=== PATIENT | female | born 1965 | race Caucasian/White ===

== ENCOUNTER → 2019-05-19 16:15 | Outpatient (BNVA) | payer MEDICAID, SELFPAY | PROVIDERS: Family Provider Dermatology; PCP Family Medicine; Visit Provider Nurse Practitioner Psychiatric/Mental Health | DX: F33.1 Major depressive disorder, recurrent, moderate (principal); F41.9 Anxiety disorder, unspecified; F43.12 Post-traumatic stress disorder, chronic | CPT/HCPCS: 99215 ==

== ENCOUNTER → 2019-06-10 11:46 | Outpatient (BNVA) | payer MEDICAID, SELFPAY | PROVIDERS: Family Provider Dermatology; PCP Family Medicine; Visit Provider Counselor Professional | DX: F43.12 Post-traumatic stress disorder, chronic (principal); F10.21 Alcohol dependence, in remission | CPT/HCPCS: 90834 ==

== ENCOUNTER → 2019-06-17 10:52 | Outpatient (BNVA) | payer MEDICAID, SELFPAY | PROVIDERS: Family Provider Dermatology; PCP Family Medicine; Visit Provider Counselor Professional | DX: F43.12 Post-traumatic stress disorder, chronic (principal); F10.21 Alcohol dependence, in remission | CPT/HCPCS: 90834 ==

== ENCOUNTER → 2019-06-24 10:55 | Outpatient (BNVA) | payer MEDICAID, SELFPAY | PROVIDERS: Family Provider Dermatology; PCP Family Medicine; Visit Provider Counselor Professional | DX: F43.12 Post-traumatic stress disorder, chronic (principal); F10.21 Alcohol dependence, in remission | CPT/HCPCS: 90834 ==

== ENCOUNTER → 2019-07-01 10:49 | Outpatient (BNVA) | payer MEDICAID, SELFPAY | PROVIDERS: Family Provider Dermatology; PCP Family Medicine; Visit Provider Counselor Professional | DX: F43.12 Post-traumatic stress disorder, chronic (principal); F10.21 Alcohol dependence, in remission | CPT/HCPCS: 90834 ==

== ENCOUNTER → 2019-07-08 11:01 | Outpatient (BNVA) | payer MEDICAID, SELFPAY | PROVIDERS: Family Provider Dermatology; PCP Family Medicine; Visit Provider Counselor Professional | DX: F43.12 Post-traumatic stress disorder, chronic (principal); F10.21 Alcohol dependence, in remission | CPT/HCPCS: 90834 ==

== ENCOUNTER → 2019-07-15 10:49 | Outpatient (BNVA) | payer MEDICAID, SELFPAY | PROVIDERS: Family Provider Dermatology; PCP Family Medicine; Visit Provider Counselor Professional | DX: F43.12 Post-traumatic stress disorder, chronic (principal); F10.21 Alcohol dependence, in remission | CPT/HCPCS: 90834 ==

== ENCOUNTER → 2019-07-21 13:46 | Outpatient (BNVA) | payer MEDICAID, SELFPAY | PROVIDERS: Family Provider Dermatology; PCP Family Medicine; Visit Provider Nurse Practitioner Psychiatric/Mental Health | DX: F43.12 Post-traumatic stress disorder, chronic (principal); F10.21 Alcohol dependence, in remission | CPT/HCPCS: 99213 ==

== ENCOUNTER → 2019-07-22 10:56 | Outpatient (BNVA) | payer MEDICAID, SELFPAY | PROVIDERS: Family Provider Dermatology; PCP Family Medicine; Visit Provider Counselor Professional | DX: F43.12 Post-traumatic stress disorder, chronic (principal); F10.21 Alcohol dependence, in remission | CPT/HCPCS: 90834 ==

== ENCOUNTER → 2019-07-29 11:00 | Outpatient (BNVA) | payer MEDICAID, SELFPAY | PROVIDERS: Family Provider Dermatology; PCP Family Medicine; Visit Provider Counselor Professional | DX: F43.12 Post-traumatic stress disorder, chronic (principal); F10.21 Alcohol dependence, in remission | CPT/HCPCS: 90834 ==

== ENCOUNTER → 2019-09-22 08:21 | Outpatient (BNVA) | payer MEDICAID, SELFPAY | PROVIDERS: Family Provider Dermatology; PCP Family Medicine; Visit Provider Nurse Practitioner Psychiatric/Mental Health | DX: F43.12 Post-traumatic stress disorder, chronic (principal); F41.9 Anxiety disorder, unspecified; F33.1 Major depressive disorder, recurrent, moderate; F10.21 Alcohol dependence, in remission | CPT/HCPCS: 99212 ==

== ENCOUNTER → 2019-09-24 08:05 | Outpatient (BNVA) | payer MEDICAID, SELFPAY | PROVIDERS: Family Provider Dermatology; PCP Family Medicine; Visit Provider Counselor Professional | DX: F43.12 Post-traumatic stress disorder, chronic (principal) | CPT/HCPCS: 90834 ==

== ENCOUNTER → 2019-09-29 08:36 | Outpatient (BNVA) | payer MEDICAID, SELFPAY | PROVIDERS: Family Provider Dermatology; PCP Family Medicine; Visit Provider Counselor Professional | DX: F43.12 Post-traumatic stress disorder, chronic (principal) | CPT/HCPCS: 90834 ==

== ENCOUNTER → 2019-10-15 08:15 | Outpatient (BNVA) | payer MEDICAID, SELFPAY | PROVIDERS: Family Provider Dermatology; PCP Family Medicine; Visit Provider Counselor Professional | DX: F43.12 Post-traumatic stress disorder, chronic (principal); F10.21 Alcohol dependence, in remission | CPT/HCPCS: 90834 ==

== ENCOUNTER → 2019-10-27 07:52 | Outpatient (BNVA) | payer MEDICAID, SELFPAY | PROVIDERS: Family Provider Dermatology; PCP Family Medicine; Visit Provider Nurse Practitioner Psychiatric/Mental Health | DX: F43.12 Post-traumatic stress disorder, chronic (principal); F10.21 Alcohol dependence, in remission; F41.9 Anxiety disorder, unspecified; F33.1 Major depressive disorder, recurrent, moderate | CPT/HCPCS: 99212 ==

== ENCOUNTER 2019-11-16 10:15 | Inpatient (IN) | payer MEDICAID, SELFPAY ==
[2019-11-16] VITALS (99 sets, daily range): BP systolic 93–150; BP diastolic 62–90; PULSE 81–109; RESP 10–16; TEMP 37.9–38.1; O2SAT 92–100; BMI 25.0
--- NOTE | 2019-11-16 10:17 | CT_ITS ---
WS: [id number] CT HEAD TECHNIQUE: Noncontrast CT of the head obtained from the skullbase to the vertex. CLINICAL INFORMATION: ams COMPARISON: 4 10,019 DLP: 771.[address] scans at [facility] use at least one of these dose optimization techniques: automat ed exposure control; mA and/or kV adjustment per patient size (includes targeted exams where dose is matched to clinical indication); or iterative reconstruction. FINDINGS: No evidence of intracranial hemorrhage. Multiple chronic lacunar infarcts involving the periventricul ar white matter. Chronic lacunar infarct right caudate. Symmetric appearing encephalomalacia involvin g the verdugo radiata bilaterally likely due to chronic ischemia. This is new from 2019. Chronic appea ring ischemia in the right basal ganglia. Diffuse low-attenuation change involving the cerebellum bilaterally some of which was present in 2019 and may be chronic. seen with subacute ischemia, posterior reversible encephalopathy syndrome, anoxi c injury, and encephalitis. This can be followed up with MRI. Paranasal sinuses and mastoid air cells are well aerated. .Normal visualized soft tissues. Notified Corby Lau MD at 11/16/2019 12:[address]/CT head wo con* [id number] IMPRESSION: 1. No evidence of intracranial hemorrhage 2. Multiple chronic lacunar infarcts in the periventricular white matter and r ight caudate appear chronic. 3. Diffuse low-attenuation change in the cerebellum bilaterally was at least p artially present in 2019. Differential considerations include Subacute ischemia , posterior reversible encephalopathy syndrome, anoxia, and encephalitis. Findi ngs can be further evaluated with MRI to assess acuity. 4. Encephalomalacia involving the evrdugo radiata bilaterally likely due to chr onic ischemia new from 2019.
--- NOTE | 2019-11-16 10:17 | XR_ITS ---
WS: [id number] Portable AP upright chest, 11/16/2019 Clinical Data: intubated Comparison: Portable chest, 08/13/2018 Findings: The endotracheal tube is above the sari. No nodules, masses or effusions are seen. The he art is normal. The pulmonary vascularity is not remarkable. No pneumonia or pneumothorax is seen. The re are monitor leads on the chest wall. The pulmonary vascularity is not increased. No pneumonia or p neumothorax is seen. XR/XR chest 1V portable [id number] Impression: Satisfactory placement of endotracheal tube.
--- NOTE | 2019-11-16 10:18 | ECG_ITS ---
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 Measurements Intervals [place] Rate: 94 P: 78 [place]: 154 QRS: 78 QRSD: 110 T: 65 QT: 375 QTc: 470 Interpretive Statements SINUS RHYTHM Compared to ECG 12/30/2017 07:58:54 Sinus tachycardia no longer present ST (T wave) deviation no longer present Electronically Signed On 11-16-2019 16:40:32 CDT by Duarte Ruelas M.D. [email or web address] [id number]
[2019-11-16 10:37] LABS: Basophils # 0.1 10^3/uL (0.0-0.1); Basophils % 0.4 %; Eosinophils % 0.1 %; Hematocrit 41.4 % (37.0-47.0); Hemoglobin 12.7 g/dL (11.5-15.3); Lymphocytes # 1.5 10^3/uL (0.8-4.8); Mean Corpuscular HGB Conc 30.7 g/dL (30.0-36.0); Mean Corpuscular Hemoglobin 31.5 pg (28.0-34.0); Mean Corpuscular Volume 102.7 fL (81-99); Mean Platelet Volume 9.6 fL (7.4-10.4); Monocytes % 4.5 %; Neutrophils # 18.27 10^3/uL (1.8-7.7); Neutrophils % 85.8 %; Nucleated Red Blood Cells % 0 %; Platelet Count 186 10^3/cmm (130-400); Red Blood Count 4.03 10^6/uL (4.1-5.3); Red Cell Distribution Width 12.2 % (12.1-15.1); White Blood Count 21.3 10^3/uL (4.0-10.0)
--- NOTE | 2019-11-16 10:40 | W.ED.GENADLT ---
HPI - General Adult General: Chief complaint: Airway/Esophagus Foreign Body Stated complaint: UNRESPONSIVE Time Seen by Provider: 11/16/19 10:17 Source: EMS Mode of arrival: EMS Limitations: altered mental status History of Present Illness: HPI narrative: 54-year-old female who EMS found unresponsive. Last known normal was last night at 8 PM. They arrived patient had a GCS of 3 and was not responding at all. Pulse ox was below 50%. They gave Narcan with no response. Patient was then intubated under rapid sequence intubation. Patient here does not respond to has been given rocuronium. She has a history of an overdose in the past. Boyfriend at scene did not know of any meds that she had taken recently though. No known injuries. Review of Systems General: Reports: ROS unobtainable due to mental status Physical Exam Const: COMMON NORMALS: negative for patient oriented x3 EXAM LIMITATIONS: altered mental status GENERAL APPEARANCE: ill appearing HENMT: COMMON NORMALS: atraumatic HEAD & SCALP: atraumatic Eye: COMMON NORMALS: conjunctivae normal CONJUNCTIVA: Yes conjunctivae normal Neck/C-Spine: COMMON NORMALS: no lymphadenopathy, supple and no JVD Chest: COMMONS NORMALS: normal inspection of the chest and normal palpation of entire chest wall Resp: OTHER: Abated with good breath sounds bilaterally Cardio: COMMON NORMALS: no JVD, regular rate and regular rhythm RATE: regular rate RHYTHM: regular rhythm GI: COMMON NORMALS: Normal to inspection, nondistended, normoactive bowel sounds present and Soft to palpation PALPATION: Yes Soft to palpation Extremity: COMMON NORMALS: normal to inspection and capillary refill normal Neuro: COMMON NORMALS: negative for patient oriented x3 Psych: COMMON NORMALS: negative for mental status grossly normal Skin: COMMON NORMALS: no rashes or lesions noted and no wounds GENERAL SKIN EXAM: no rashes or lesions noted Course Vital Signs: Vital signs: Vital Signs Pulse Rate 87 11/16/19 12:56 Respiratory Rate 14 11/16/19 12:52 Blood Pressure 114/79 11/16/19 10:17 Pulse Oximetry 100 11/16/19 12:52 MDM - General Adult MDM Narrative: Medical decision making narrative: Patient presents here with altered mental status and unresponsiveness. Patient was intubated in the field and was hypoxic. Patient's had minimally responsiveness here. I spoke to Dr. Amezcua and will admit to the ICU. Lab Data: Labs: Lab Results 11/16/19 11/16/19 11/16/19 Range/Units 10:29 10:29 10:29 WBC 21.3 H (4.0-10.0) 10^3/ uL RBC 4.03 L (4.1-5.3) 10^6/u L Hgb 12.7 (11.5-15.3) g/dL Hct 41.4 (37.0-47.0) % MCV 102.7 H (81-99) fL MCH 31.5 (28.0-34.0) pg MCHC 30.7 (30.0-36.0) g/dL RDW 12.2 (12.1-15.1) % Plt Count 186 (130-400) 10^3/c mm MPV 9.6 (7.4-10.4) fL Neut % (Auto) 85.8 % Lymph % (Auto) 7.0 % [place] % (Auto) 4.5 % Eos % (Auto) 0.1 % Baso % (Auto) 0.4 % Neut # (Auto) 18.27 H (1.8-7.7) 10^3/u L Lymph # (Auto) 1.5 (0.8-4.8) 10^3/u L [place] # (Auto) 1.0 H (0.2-0.9) 10^3/u L Eos # (Auto) 0.0 (0.0-0.8) 10^3/u L Baso # (Auto) 0.1 (0.0-0.1) 10^3/u L Nucleated RBC % (a uto) 0 % Nucleated RBCs # 0.0 /100WBC PT 14.50 H (10.5-13.3) SECO NDS INR 1.10 (0.8-1.2) Specimen Type Sample Site ABG pH (7.35-7.45) ABG pCO2 (35-45) mmHg ABG pO2 (80.0-100.0) mmH g ABG HCO3 (22-26) mmol/L ABG Base Excess (-2.0-2.0) mmol/ L Rc Test Hematocrit (37-47) % O2 Delivery Device FiO2 % Tidal Volume PEEP cmH20 Chief Revenue Officer ID Sodium 138 (136-145) mmol/L Potassium 4.3 (3.5-5.1) mmol/L Chloride 95 L (98-107) mmol/L Carbon Dioxide 24 (22-29) mmol/L Anion Gap 23.3 H (5-19) BUN 9 (6-20) mg/dL Creatinine 1.8 H (0.5-0.9) mg/dL GFR Calculation 29.5 L (90-130) mL/min Glucose 100 (65-115) mg/dL Calculated Osmolal ity 282 L (285-295) mOsm/k g Lactate (0.5-2.2) mmol/L Calcium 9.1 (8.5-10.5) mg/dL Magnesium 2.2 (1.7-2.3) mg/dL Total Bilirubin 0.3 (0.15-1.2) mg/dL AST 289 H (0-32) U/L ALT 268 H (0-33) U/L Alkaline Phosphata se 81 (35-105) IU/L NT-Pro-B Natriuret Pep 1425 H (0-125) pg/mL Total Protein 6.7 (6.6-8.7) g/dL Albumin 4.3 (3.5-5.2) g/dL Globulin 2.4 (1.3-4.6) g/dL Salicylates < 0.3 L (3-10) mg/dL Acetaminophen < 5.0 L (10-30) ug/mL Ethyl Alcohol < 10 (0-10) mg/dL 11/16/19 11/16/19 Range/Units 10:29 11:20 WBC (4.0-10.0) 10^3/ uL RBC (4.1-5.3) 10^6/u L Hgb (11.5-15.3) g/dL Hct (37.0-47.0) % MCV (81-99) fL MCH (28.0-34.0) pg MCHC (30.0-36.0) g/dL RDW (12.1-15.1) % Plt Count (130-400) 10^3/c mm MPV (7.4-10.4) fL Neut % (Auto) % Lymph % (Auto) % [place] % (Auto) % Eos % (Auto) % Baso % (Auto) % Neut # (Auto) (1.8-7.7) 10^3/u L Lymph # (Auto) (0.8-4.8) 10^3/u L [place] # (Auto) (0.2-0.9) 10^3/u L Eos # (Auto) (0.0-0.8) 10^3/u L Baso # (Auto) (0.0-0.1) 10^3/u L Nucleated RBC % (a uto) % Nucleated RBCs # /100WBC PT (10.5-13.3) SECO NDS INR (0.8-1.2) Specimen Type Arterial Sample Site Radial, right ABG pH 7.38 (7.35-7.45) ABG pCO2 44.2 (35-45) mmHg ABG pO2 55.0 L (80.0-100.0) mmH g ABG HCO3 26.0 (22-26) mmol/L ABG Base Excess 0.5 (-2.0-2.0) mmol/ L Rc Test Pos Hematocrit 40.9 (37-47) % O2 Delivery Device Vent FiO2 100.0 % Tidal Volume 0.45 PEEP 8.0 cmH20 Chief Revenue Officer ID broma Sodium (136-145) mmol/L Potassium (3.5-5.1) mmol/L Chloride (98-107) mmol/L Carbon Dioxide (22-29) mmol/L Anion Gap (5-19) BUN (6-20) mg/dL Creatinine (0.5-0.9) mg/dL GFR Calculation (90-130) mL/min Glucose (65-115) mg/dL Calculated Osmolal ity (285-295) mOsm/k g Lactate 4.2 H* (0.5-2.2) mmol/L Calcium (8.5-10.5) mg/dL Magnesium (1.7-2.3) mg/dL Total Bilirubin (0.15-1.2) mg/dL AST (0-32) U/L ALT (0-33) U/L Alkaline Phosphata se (35-105) IU/L NT-Pro-B Natriuret Pep (0-125) pg/mL Total Protein (6.6-8.7) g/dL Albumin (3.5-5.2) g/dL Globulin (1.3-4.6) g/dL Salicylates (3-10) mg/dL Acetaminophen (10-30) ug/mL Ethyl Alcohol (0-10) mg/dL Imaging Data^: CT Head: Attestation: I personally reviewed and interpreted this imaging study as follows: Radiologist's impression: [place] [address] CT Scan Report Signed Patient: Katerina Singer Unit #: [id number] : 1965 Age/Sex: 54 / F ADM Date: 11/16/19 Loc: ER Room/Bed: Attending Dr: Ordering Provider/Ordering MD: Corby Lau MD Date of Service: 11/16/19 Procedure(s): CT head wo con* [id number] Accession Number(s): [id number] Report Number: [id number] WS: [id number] CT HEAD TECHNIQUE: Noncontrast CT of the head obtained from the skullbase to the vertex. CLINICAL INFORMATION: ams COMPARISON: DLP: 771.[address] scans at [facility] use at least one of these dose optimization techniques: automated exposure control; mA and/or kV adjustment per patient size (includes targeted exams where dose is matched to clinical indication); or iterative reconstruction. FINDINGS: No evidence of intracranial hemorrhage. Multiple chronic lacunar infarcts involving the periventricular white matter. Chronic lacunar infarct right caudate. Symmetric appearing encephalomalacia involving the verdugo radiata bilaterally likely due to chronic ischemia. This is new from 2019. Chronic appearing ischemia in the right basal ganglia. Diffuse low-attenuation change involving the cerebellum bilaterally some of which was present in 2019 and may be chronic. seen with subacute ischemia, posterior reversible encephalopathy syndrome, anoxic injury, and encephalitis. This can be followed up with MRI. Paranasal sinuses and mastoid air cells are well aerated. .Normal visualized soft tissues. Notified Corby Lau MD at 11/16/2019 12:[address]/CT head wo con* [id number] IMPRESSION: 1. No evidence of intracranial hemorrhage 2. Multiple chronic lacunar infarcts in the periventricular white matter and right caudate appear chronic. 3. Diffuse low-attenuation change in the cerebellum bilaterally was at least partially present in 2019. Differential considerations include Subacute ischemia, posterior reversible encephalopathy syndrome, anoxia, and encephalitis. Findings can be further evaluated with MRI to assess acuity. 4. Encephalomalacia involving the verdugo radiata bilaterally likely due to chronic ischemia new from 2019. CXR: My impression: ET tube in place no acute findings Critical Care Time Critical Care Time: Critical Care Time: Yes Total Critical Care Time: 35 Attestation: This case had a high probability of a clinically significant, sudden, or life threatening deterioration of this patient's condition which required my full and direct attention, intervention and personal management. Discharge Plan Discharge Admit Provider: Pascual Amezcua Coding Level of Care Code ED Wrapping Machine Helper for [facility] Exam Comprehensive
[2019-11-16 11:07] LABS: Alanine Aminotransferase 268 U/L (0-33); Albumin Level 4.3 g/dL (3.5-5.2); Alkaline Phosphatase 81 IU/L (35-105); Aspartate Amino Transferase 289 U/L (0-32); Blood Urea Nitrogen 9 mg/dL (6-20); Calcium 9.1 mg/dL (8.5-10.5); Carbon Dioxide 24 mmol/L (22-29); Chloride 95 mmol/L (98-107); Globulin 2.4 g/dL (1.3-4.6); Glomerular Filtration Rate 29.5 mL/min (90-130); Glucose 100 mg/dL (65-115); Magnesium 2.2 mg/dL (1.7-2.3); NT Pro B Type Natriuretic Pept 1425 pg/mL (0-125); Osmolality Calculated 282 mOsm/kg (285-295); Sodium 138 mmol/L (136-145); Total Bilirubin 0.3 mg/dL (0.15-1.2); Total Protein 6.7 g/dL (6.6-8.7)
[2019-11-16 11:24] LABS: Acetaminophen < 5.0 ug/mL (10-30); Alcohol Level < 10 mg/dL (0-10); Anion Gap 23.3 (5-19); Potassium 4.3 mmol/L (3.5-5.1); Salicylate < 0.3 mg/dL (3-10)
[2019-11-16 11:28] LABS: Lactate (Lactic Acid level) 4.2 mmol/L (0.5-2.2)
[2019-11-16 11:40] LABS: ABG PCO2 44.2 mmHg (35-45); ABG PH Result 7.38 (7.35-7.45); Arterial Blood Gas Hematocrit 40.9 % (37-47); Base Excess ABG 0.5 mmol/L (-2.0-2.0); Blood Gas Allen Test Pos; Blood Gas Sample Site Radial, right; Blood Gas Sample Type Arterial; Blood Gas Tidal Volume 0.45; Oxygen Device VENT
[2019-11-16] MEDS: ipratropium-albuterol 3 mL Neb INHALATION ×3 (12:52→20:56)
--- NOTE | 2019-11-16 14:30 | PC.NURSE ---
Read and agree with assessment.
--- NOTE | 2019-11-16 14:35 | ECG_ITS ---
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 Measurements Intervals [place] Rate: 98 P: 73 IN: 124 QRS: 51 QRSD: 105 T: 24 QT: 371 QTc: 474 Interpretive Statements SINUS RHYTHM ST DEVIATION AND MODERATE T-WAVE ABNORMALITY, CONSIDER ANTERIOR ISCHEMIA [-0.1+ mV T WAVE IN V3/V4] Compared to ECG 11/16/2019 11:25:26 T-wave abnormality now present Possible ischemia now present Electronically Signed On 11-16-2019 16:44:13 CDT by Duarte Ruelas M.D. [id number]
--- NOTE | 2019-11-16 14:48 | PC.NURSE ---
PATIENT UPDATE TO DR Dr. Amezcua called to give update on patient. ER brought patient to ICU and stated in brief handoff report that patient had not required any additional sedation after roceronium administration in ER. Dr. Amezcua instructed to hold propofol and fentanyl to see how patient does upon waking up on her own. Stated that he would put in additional orders and to update him as she wakes up.
[2019-11-16] MEDS: piperacillin-tazobactam 3.375 GM in sodium chloride 0.9% (plus) 50 ML IV ×2 (15:22→23:46)
[2019-11-16] MEDS: enoxaparin 40 mg/0.4 mL Syringe SUBCUT (15:22)
[2019-11-16] MEDS: propofol 1,000 MG/100 ML INJ 4.4 MG IV (16:06)
--- NOTE | 2019-11-16 16:13 | PC.NURSE ---
SEDATION INITIATION Patient ventilator started alarming. Patient biting down on ET tube and would not let go with instruction to. Respiratory in room intervening and placed bite block. Dr. Amezcua notified, and instructed to begin propofol.
[2019-11-16 16:19] LABS: Ammonia 30 umol/L (11-51)
[2019-11-16 16:23] LABS: D Dimer 11.07 ug/mIFEU (0-0.59)
[2019-11-16 16:30] LABS: Amphetamines Screen Urine Negative (Negative); Barbiturates Screen Urine Negative (Negative); Benzodiazepines Screen Urine Positive (Negative); Cocaine Screen Urine Negative (Negative); Opiate Screen Urine Negative (Negative); PCP Screen Urine Negative (Negative); THC Screen Urine Positive (Negative)
[2019-11-16 16:31] LABS: Troponin T (5th) Once 81 ng/L (0-10)
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
[2019-11-16] MEDS: enoxaparin 30 mg/0.3 mL Syringe SUBCUT (18:40)
[2019-11-16 20:37] LABS: Troponin 5 2HR 72.27 ng/L (0-10)
[2019-11-16 20:57] LABS: Troponin 5 2HR Delta -8.73 ABS# (0-10)
[2019-11-16] MEDS: sodium chloride 0.9% 1,000 ML 125 ML IV (22:17)
[2019-11-17] VITALS (86 sets, daily range): BP systolic 97–196; BP diastolic 63–147; PULSE 68–116; RESP 10–25; TEMP 36.4–37; O2SAT 88–100
[2019-11-17 00:47] LABS: Troponin 5 6HR 63.67 ng/L (0-10)
[2019-11-17] MEDS: ipratropium-albuterol 3 mL Neb INHALATION ×5 (00:56→21:18)
--- NOTE | 2019-11-17 05:00 | USCV_ITS ---
Katerina Singer Age: 54 Gender: F : 1965 Exam Date: 11/17/2019 08:09 Ordering Phys: Pascual Amezcua MD Technologist: Reyes Gomez Exam Location: [facility] Indication: TIA BP: 172 / 97 HR: 97 Rhythm: Sinus Technical Quality: Very technically difficult study. Patient on vent. MEASUREMENTS (Male / Female) Normal Values 2D ECHO LV Diastolic Diameter PLAX 4.4 cm 4.2 - 5.9 / 3.9 - 5.3 cm LV Systolic Diameter PLAX 2.0 cm IVS Diastolic Thickness 0.9 cm 0.6 - 1.0 / 0.6 - 0.9 cm IVS Systolic Thickness 1.6 cm LVPW Diastolic Thickness 0.9 cm 0.6 - 1.0 / 0.6 - 0.9 cm LVPW Systolic Thickness 1.3 cm LVOT Diameter 2.0 cm LV Ejection Fraction 2D Teich 85.8 % LV Ejection Fraction MOD 2C 60.4 % LV Ejection Fraction 2C AL 60.5 % LA Diameter 3.3 cm LA Width 3.9 cm LA Height 4.0 cm RA Width 3.6 cm RA Height 3.8 cm M-MODE LV Diastolic Diameter MM 5.0 cm 4.2 - 5.9 / 3.9 - 5.3 cm LV Systolic Diameter MM 4.0 cm LV Ejection Fraction MM Teich 41.9 % IVS Diastolic Thickness MM 0.9 cm 0.6 - 1.0 / 0.6 - 0.9 cm IVS Systolic Thickness MM 1.3 cm LVPW Diastolic Thickness MM 1.0 cm 0.6 - 1.0 / 0.6 - 0.9 cm LVPW Systolic Thickness MM 1.6 cm RV Diastolic Diameter MM 2.0 cm Aortic Annulus Diameter 3.0 cm LA Ao Ratio MM 1.1 MV E Point Septal Separation 1.0 cm DOPPLER AV Peak Velocity 155.0 cm/s LVOT Peak Velocity 89.0 cm/s AV Area Cont Eq vti 2.3 cm squared AV Area Cont Eq pk 1.8 cm squared MV Area PHT 5.0 cm squared Mitral E to A Ratio 0.8 MV E' Velocity 15.0 cm/s Mitral E to MV E' Ratio 5.5 Mitral E to LV E' Lateral Ratio 5.2 Mitral E to LV E' Septal Ratio 5.8 TR Peak Velocity 233.0 cm/s TR Peak Gradient 21.7 mmHg TV Peak E Velocity 82.0 cm/s Right Atrial Pressure 3.0 mmHg Pulmonary Artery Systolic Pressu 24.7 mmHg PV Peak Velocity 98.0 cm/s FINDINGS Left Ventricle Normal left ventricular size and systolic function with no regional wall motion abnormalities. Left ventricular ejection fraction is estimated at 65 %. Normal diastolic function. Right Ventricle Normal right ventricular size and systolic function, RVSP 24.7 mmHg. Right Atrium Normal right atrial size. Right atrial pressure estimated at 3 mmHg. Left Atrium Normal left atrial size. Mitral Valve Structurally normal mitral valve. Trace mitral valve regurgitation. Aortic Valve Aortic valve not well visualized. No aortic valve stenosis. Tricuspid Valve Trace tricuspid valve regurgitation. Pulmonic Valve Pulmonic valve not well visualized. No pulmonary valve stenosis. Pericardium No pericardial effusion. Aorta Aorta not well visualized. CONCLUSIONS 1. Normal left ventricular size and systolic function with no regional wall motion abnormalities. Left ventricular ejection fraction is estimated at 65 %. Normal diastolic function. 2. Normal pulmonary artery pressure. 3. No significant valvular abnormality. 4. No cardioembolic source of stroke based on the study. JULISSA is recommended if clinically indicated. Elicia Sow MD (Electronically Signed) Final Date: 17 November 2019 17:51 S
[2019-11-17 05:24] LABS: Basophils % 0.3 %; Eosinophils % 0.1 %; Hematocrit 34.4 % (37.0-47.0); Hemoglobin 11.7 g/dL (11.5-15.3); Lymphocytes # 1.8 10^3/uL (0.8-4.8); Lymphocytes % 13.1 %; Mean Corpuscular Hemoglobin 32.7 pg (28.0-34.0); Mean Corpuscular Volume 96.1 fL (81-99); Mean Platelet Volume 10.4 fL (7.4-10.4); Monocytes # 0.5 10^3/uL (0.2-0.9); Neutrophils # 11.17 10^3/uL (1.8-7.7); Neutrophils % 81.9 %; Nucleated Red Blood Cells % 0 %; Platelet Count 179 10^3/cmm (130-400); Red Blood Count 3.58 10^6/uL (4.1-5.3); Red Cell Distribution Width 12.6 % (12.1-15.1); White Blood Count 13.6 10^3/uL (4.0-10.0)
[2019-11-17 05:42] LABS: Albumin Level 3.5 g/dL (3.5-5.2); Alkaline Phosphatase 70 IU/L (35-105); Blood Urea Nitrogen 11 mg/dL (6-20); C Reactive Protein 81.9 mg/L (0.0-4.9); Calcium 7.9 mg/dL (8.5-10.5); Carbon Dioxide 24 mmol/L (22-29); Chloride 101 mmol/L (98-107); Globulin 2.4 g/dL (1.3-4.6); Glomerular Filtration Rate 58.2 mL/min (90-130); Glucose 128 mg/dL (65-115); Osmolality Calculated 282 mOsm/kg (285-295); Sodium 137 mmol/L (136-145); Total Bilirubin 0.4 mg/dL (0.15-1.2); Total Protein 5.9 g/dL (6.6-8.7)
[2019-11-17 05:58] LABS: Alanine Aminotransferase 1087 U/L (0-33)
[2019-11-17 06:08] LABS: Aspartate Amino Transferase 1523 U/L (0-32)
[2019-11-17] MEDS: sodium chloride 0.9% 1,000 ML 125 ML IV ×3 (06:14→22:27)
[2019-11-17] MEDS: enoxaparin 80 mg/0.8 mL Syringe 70 MG SUBCUT ×2 (06:14→17:51)
--- NOTE | 2019-11-17 06:20 | NUR.SHIFT ---
SHIFT SUMMARY PT HAS REMAINED SEDATED. PT HAS BEEN TURNED PERIODICALLY, AND ORAL CARE NEEDED. PT IVS REMAIN PATENT. NO SKIN BREAKDOWN NOTED. LUNGS REMAIN DIMINISHED.
--- NOTE | 2019-11-17 06:34 | CT_ITS ---
WS: [id number] CTA OF THE CHEST WITH PULMONARY EMBOLISM PROTOCOL TECHNIQUE: High-resolution contrast enhanced CTA of the chest with coronal and sagittal reformatted i doreens with pulmonary embolism protocol. MIP images are also reviewed. CLINICAL INFORMATION: rule out PE COMPARISON: None. DLP: 498.[address] scans at [facility] use at least one of these dose optimization techniques: automat ed exposure control; mA and/or kV adjustment per patient size (includes targeted exams where dose is matched to clinical indication); or iterative reconstruction. FINDINGS: Proximal main pulmonary arteries are normal. Segmental and subsegmental pulmonary arteries are normal . Normal caliber thoracic aorta. Endotracheal tube with tip above the sari. Enteric tube with tip in the proximal stomach. No medias tinal or hilar lymphadenopathy. Subsegmental atelectasis with patchy infiltrates in the left greater than right lung base. Recommend correlation for pneumonia. Air bronchograms left lower lobe medially. Trace pleural fluid. Adrenal glands are normal. Partially visualized cholelithiasis. This can be followed up with nahomy maddox. CT/CT angio chest PE protcl [id number] IMPRESSION: 1. No evidence for pulmonary embolus. 2. Subsegmental atelectasis in the lung bases with slight consolidation left l winter base medially with air bronchograms. Recommend correlation for pneumonia. 3. Partially visualized cholelithiasis. This can be followed up with fern jane.
--- NOTE | 2019-11-17 06:51 | P.PN_ITS ---
Subjective Subjective: Interval history: Patient seen to be doing little bit better this morning. She did have a fever that she spiked overnight but responded to Tylenol. She is not had any since. White blood cell count has improved some this morning. Creatinine is improving as well. She is making good urine output. We have been able to come down on her FiO2. D-dimer was positive last night. Troponin T although elevated had a negative delta. CRP is markedly elevated. She is starting to try to bite down on the ET tube and requiring some sedation. Vitals/I&O/Wt Last Vital Signs Temp 98.6 F 11/18/19 05:00 Pulse 74 11/18/19 05:00 Resp 22 H 11/18/19 05:00 BP 168/98 11/18/19 05:33 Pulse Ox 92 11/18/19 05:00 11/17/19 11/17/19 11/18/19 14:59 22:59 06:59 Intake Total 1187.198 / 3120.532 1047.917 / 3120.532 885.417 / 3120.532 Output Total 750 / 1225 475 / 1225 Balance 1187.198 / 1895.532 297.917 / 1895.532 410.417 / 1895.532 Weight last 48 hrs Weight 160 lb Physical Exam Narrative: EXAM NARRATIVE: General: No acute distress, still sedated on the ventilator. Pupils are equal round reactive to light and accommodation Heart: Regular rate and rhythm. No murmurs, rubs or gallops. Normal capillary refill. Lungs: Clear to auscultation. No wheezes, rhonchi or rales. Abdomen: Positive bowel sounds. Non-tender, non-distended. No hepatosplenomegaly. No gaurding. Extremities: No clubbing, cyanosis, or edema. Urinary Catheter Management^: Roland: Cath Placed During This Visit: no Data : 11/18/19 04:58 11/18/19 04:58 A&P Assessment and plan (1) Respiratory failure requiring intubation: -Respiratory failure seems to be improving. Decreased FiO2. With the positive d-dimer we will proceed with a CTA of the chest and if negative for PE will proceed with trying to wean to extubate -Elevated LFTs -unclear to the etiology of this. We will continue to monitor. -Leukocytosis -improving. We will continue IV antibiotics with Zosyn. Status: Acute (2) Encephalopathy acute: -Unclear etiology. Possible anoxic brain injury. Also possibly from an acute stroke. Ammonia level was normal. See how she does as we hopefully extubate later today. Status: Acute (3) CVA, old, ataxia: Status: Acute Attestations Medical Necessity Statement*: 54-year-old female with encephalopathy and respiratory failure requiring continued ICU care in the hospital setting. Coding Level of Care Code Acute [employer] Room Attendant for [facility] Diagnoses Respiratory failure requiring intubation J96.90 Encephalopathy acute G93.40 CVA, old, ataxia I69.993
[2019-11-17 07:05] LABS: Magnesium 1.9 mg/dL (1.7-2.3)
[2019-11-17] MEDS: propofol 1,000 MG/100 ML INJ 6.5 MG IV (07:27)
[2019-11-17] MEDS: piperacillin-tazobactam 3.375 GM in sodium chloride 0.9% (plus) 50 ML IV ×3 (07:27→22:58)
[2019-11-17] MEDS: potassium chloride premix 40 MEQ/100 ML PREMIX 25 MEQ IV (07:28)
[2019-11-17] MEDS: iohexol 350 mg/mL 100 mL Btl IV (09:56)
[2019-11-17] MEDS: propofol 1,000 MG/100 ML INJ 13.1 MG IV (12:20)
--- NOTE | 2019-11-17 12:33 | PC.NURSE ---
Addendum entered by Monica Hardy RN 11/17/19 12:54: Witnessed Sarath Singer RN waste 100ml Fentanyl. Original Note: FENTANYL WASTE Fentanyl wasted with 2nd nurse, Moniac Hardy RN. 100ml wasted.
[2019-11-17] MEDS: lisinopril 10 mg Tablet PO (14:57)
[2019-11-17] MEDS: metoprolol tartrate 25 mg Tablet PO (14:57)
--- NOTE | 2019-11-17 15:51 | PC.NURSE ---
rounding Patient resting with eyes closed. BP is down to 157/93.
[2019-11-17] MEDS: LORazepam 2 mg/mL INJ 1 mL 1 MG IVP (16:43)
--- NOTE | 2019-11-17 17:34 | PC.PT ---
Nursing recommends hold PT evaluation today due to high blood pressure, will reattempt tomorrow
[2019-11-17] MEDS: labetalol 5 mg/mL SDV 20mL 10 MG IVP (23:00)
--- NOTE | 2019-11-17 23:15 | PC.NURSE ---
Took over care for patient at this time. Pt is lethargic, withdrawls to painful stimuli. Is not following commands. Nurse reports patient has been altered and physician is aware.
[2019-11-18] VITALS (19 sets, daily range): BP systolic 132–178; BP diastolic 79–115; PULSE 62–89; RESP 12–27; TEMP 36.7–37; O2SAT 88–100
[2019-11-18] MEDS: labetalol 5 mg/mL SDV 20mL 10 MG IVP ×2 (03:10→08:17)
--- NOTE | 2019-11-18 04:00 | PC.NURSE ---
During AM bath when talking to the patient would respond with mumbling and raising eye brows. During bath observed patient moving right arm and both legs. observed minimal movement to left arm. Left leg would tremor upon raising it off bed. Pt still not following commands.
--- NOTE | 2019-11-18 05:06 | PC.NURSE ---
Physician notified Dr. Amezcua notified for continued hypertension after 2 doses of IV labetelol. Current BP 173/111. Dr. Amezcua notified of continued lethargic state, unable to follow commands. Order received to administer 0.1mg clonidine patch.
[2019-11-18 05:14] LABS: Basophils % 0.3 %; Eosinophils % 0.1 %; Hematocrit 32.4 % (37.0-47.0); Hemoglobin 10.4 g/dL (11.5-15.3); Lymphocytes # 1.6 10^3/uL (0.8-4.8); Lymphocytes % 11.5 %; Mean Corpuscular HGB Conc 32.1 g/dL (30.0-36.0); Mean Corpuscular Hemoglobin 31.8 pg (28.0-34.0); Mean Corpuscular Volume 99.1 fL (81-99); Mean Platelet Volume 10.2 fL (7.4-10.4); Monocytes # 0.7 10^3/uL (0.2-0.9); Monocytes % 5.1 %; Neutrophils # 11.71 10^3/uL (1.8-7.7); Neutrophils % 82.4 %; Nucleated Red Blood Cells % 0 %; Platelet Count 159 10^3/cmm (130-400); Red Blood Count 3.27 10^6/uL (4.1-5.3); Red Cell Distribution Width 12.9 % (12.1-15.1); White Blood Count 14.2 10^3/uL (4.0-10.0)
[2019-11-18 05:31] LABS: Albumin Level 3.7 g/dL (3.5-5.2); Alkaline Phosphatase 116 IU/L (35-105); Anion Gap 12.7 (5-19); Blood Urea Nitrogen 6 mg/dL (6-20); Calcium 7.7 mg/dL (8.5-10.5); Carbon Dioxide 22 mmol/L (22-29); Chloride 109 mmol/L (98-107); Globulin 2.1 g/dL (1.3-4.6); Glomerular Filtration Rate 129.6 mL/min (90-130); Glucose 106 mg/dL (65-115); Osmolality Calculated 286 mOsm/kg (285-295); Potassium 3.7 mmol/L (3.5-5.1); Sodium 140 mmol/L (136-145); Total Bilirubin 0.5 mg/dL (0.15-1.2); Total Protein 5.8 g/dL (6.6-8.7)
[2019-11-18] MEDS: sodium chloride 0.9% 1,000 ML 125 ML IV ×2 (05:32→13:29)
[2019-11-18] MEDS: cloNIDine 0.1 mg/24 hr Patch 1 PATCH TRANSDERMA (05:33)
[2019-11-18] MEDS: enoxaparin 80 mg/0.8 mL Syringe 70 MG SUBCUT (05:37)
[2019-11-18 05:46] LABS: Alanine Aminotransferase 1162 U/L (0-33)
[2019-11-18 05:51] LABS: Aspartate Amino Transferase 1143 U/L (0-32)
--- NOTE | 2019-11-18 06:25 | CT_ITS ---
WS: [id number] CT HEAD TECHNIQUE: Noncontrast and contrast-enhanced CT of the head. CLINICAL INFORMATION: stroke COMPARISON: November 16, 2019 DLP: 2704.[address] scans at [facility] use at least one of these dose optimization techniques: automat ed exposure control; mA and/or kV adjustment per patient size (includes targeted exams where dose is matched to clinical indication); or iterative reconstruction. FINDINGS: Progression of the low-attenuation change in the cerebellum bilaterally most likely due to ischemia. Increasing edema in the cerebellum with mass effect on the fourth ventricle and crowding of the poste rior fossa. Early tonsillar herniation with mild mass effect in the brain stem and cervical medullary junction. This results in obstructive hydrocephalus which is moderate and progressed from previous. Dilatation of the third ventricle and temporal horns. No intracranial hemorrhage. Slightly progressed low-attenuation change in the lateral basal ganglia suspicious for subacute ische nicole measuring 1.8 cm. Additional chronic appearing bilateral lacunar infarcts in the caudate and basa l ganglia. Chronic appearing infarcts involving the verdugo radiata and periventricular white matter. Otherwise chronic appearing small vessel changes and chronic infarcts as previously described No abnormal enhancement on postcontrast images. Proximal intracranial [place] appears patent . Basilar artery appears patent. Paranasal sinuses and mastoid air cells are well aerated. Notified Pascual Amezcua MD at 11/18/2019 8:[address]/CT head wo/w con [id number] IMPRESSION: 1. Progressive edema in the cerebellum bilaterally with increased mass effect and partial effacement of the fourth ventricle. Findings presumably due to evol ving ischemia. 2. Partial effacement of the fourth ventricle with mass effect on the brachium pontis and brainstem. Crowding at the cervicomedullary junction for early tons illar herniation. 3. Above findings Result in obstructive moderate hydrocephalus with dilatation of third ventricle and temporal horns new from previous. 4. Other chronic changes as described above. 5. Proximal intracranial [place] and basilar artery appear patent on the post contrast imaging. No significant enhancement in the cerebellum.
--- NOTE | 2019-11-18 06:27 | XRR_ITS ---
PROCEDURE INFORMATION: Exam: XR Chest, 1 View Exam date and time: 11/18/2019 6:56 AM Age: 54 years old Clinical indication: Dyspnea; Unresponsive TECHNIQUE: Imaging protocol: XR of the chest Views: 1 view. COMPARISON: CR XR chest 1V portable [id number] 11/16/2019 10:38 AM FINDINGS: Tubes, catheters and devices: Interval removal of the endotracheal tube. Lungs: There is left lower lobe, retrocardiac airspace disease. Pleural space: No pleural effusion or pneumothorax. Heart/Mediastinum: The cardiac silhouette is not enlarged. The mediastinal contours are normal. Bones/joints: No acute osseous abnormality. XR/XR chest 1V portable [id number] IMPRESSION: Left lower lobe airspace disease. Considerations include pneumonia and aspiration pneumonitis.
[2019-11-18 06:34] LABS: ABG PH Result 7.39 (7.35-7.45); Arterial Blood Gas Hematocrit 33.8 % (37-47); Base Excess ABG -2.8 mmol/L (-2.0-2.0); Blood Gas Allen Test Pos; Blood Gas Sample Site Radial, right; Blood Gas Sample Type Arterial; HCO3 ABG 21.7 mmol/L (22-26); Oxygen Device NC; PO2 ABG 62.5 mmHg (80.0-100.0)
--- NOTE | 2019-11-18 07:00 | PM.PN ---
Subjective Subjective: Interval history: Patient was successfully extubated yesterday. CTA was negative. Possible early pneumonia seen. She has been off and on with her responsiveness through the day. She is had times where she has moved all of her extremities and other times where she appears to have some significant left-sided weakness. This seems of gotten worse this morning though. She is less responsive this morning. She is not cooperating to take any oral intake. She is not answering questions appropriately this morning. No fevers. Vitals/I&O/Wt Last Vital Signs Temp 98.6 F 11/18/19 05:00 Pulse 66 11/18/19 06:00 Resp 18 11/18/19 06:00 BP 165/94 11/18/19 06:00 Pulse Ox 92 11/18/19 06:00 11/17/19 11/18/19 11/18/19 22:59 06:59 14:59 Intake Total 1047.917 / 3120.532 885.417 / 3120.532 Output Total 750 / 1225 475 / 1225 Balance 297.917 / 1895.532 410.417 / 1895.532 Weight last 48 hrs Weight 160 lb Physical Exam Narrative: EXAM NARRATIVE: General: No acute distress, minimally responsive. She is not using her left arm this morning.. Pupils are equal round reactive to light and accommodation Heart: Regular rate and rhythm. No murmurs, rubs or gallops. Normal capillary refill. Lungs: Clear to auscultation. No wheezes, rhonchi or rales. Abdomen: Positive bowel sounds. Non-tender, non-distended. No hepatosplenomegaly. No gaurding. Extremities: No clubbing, cyanosis, or edema. Urinary Catheter Management^: Roland: Cath Placed During This Visit: no Data : 11/18/19 04:58 11/18/19 04:58 A&P Assessment and plan (1) Respiratory failure requiring intubation: -Possible early pneumonia. -She is successfully extubated on 11/16. She has had some increase in her O2 requirements overnight though. We will go ahead and proceed with a chest x-ray this morning. Status: Acute (2) Encephalopathy acute: -Unclear etiology. Possible anoxic brain injury. Also possibly from an acute stroke. Ammonia level was normal. She is not clearing as I would hope. We are going to proceed with a CT with contrast of the head to evaluate for new acute stroke. Follow-up on chest x-ray. Status: Acute (3) CVA, old, ataxia: Status: Acute (4) Elevated LFTs: These have stabilized. We will go ahead and check a hepatitis panel. Probably get an ultrasound of her liver as well. Status: Acute Attestations Medical Necessity Statement*: Patient is a 54-year-old female with respiratory failure and encephalopathy requiring continued ICU care. Coding Level of Care Code Acute Database Management Specialist for [facility] Diagnoses Respiratory failure requiring intubation J96.90 Encephalopathy acute G93.40 CVA, old, ataxia I69.993 Elevated LFTs R79.89
[2019-11-18] MEDS: iohexol 300 mg/mL 100 mL Btl IV (07:36)
[2019-11-18 07:56] LABS: Hepatitis A Antibody IgM Non-Reactive (Nonreactive); Hepatitis B Core AB, Total Non-Reactive (Nonreactive); Hepatitis B Surface AB 42.5 (0-8.5); Hepatitis B Surface Antigen Non-Reactive (Nonreactive); Hepatitis C Virus Antibody Non-Reactive (Nonreactive)
[2019-11-18] MEDS: piperacillin-tazobactam 3.375 GM in sodium chloride 0.9% (plus) 50 ML IV (08:17)
[2019-11-18] MEDS: ipratropium-albuterol 3 mL Neb INHALATION ×2 (09:12→11:15)
--- NOTE | 2019-11-18 09:56 | P.CONIM_ITS ---
Providers/Reason For Consult Consulting Physican/Specialty*: Dr. Amezcua Reason for Consult*: Coma Attending Physician: Pascual Amezcua MD Primary Care Provider: Pascual Amezcua MD History of Present Illness History of Present Illness Katerina Singer is a 54 year old woman who was found unresponsive and intubated on arrival to [facility]. I was called stat by Dr. Amezcua because of a change in CAT scan. I reviewed her CT scan of the head from this morning and compared it with her CAT scan from 15 November and later was able to track down her CAT scan from August 2018 and compare those images. She has impending brainstem herniation on today's CAT scan and hydrocephalus with enlarged ventricles when compared with her images from 2 days ago which showed only mild cerebellar edema that was slightly worse than it was a year ago. I have spent over an hour reviewing her records, her examination and her CT scans of the head from a year ago in August, from 2 days ago and from this morning while attempting to have the patient transferred for potential craniectomy or cerebellar ectomy. I talked with Dr. Amezcua and advised immediate intubation. I talked with her significant other and took a history and reviewed her records. I spoke with critical care at [facility] who would prefer that I talk with neurosurgery and have the patient accepted by neurosurgery. I have talked with the patient's significant other, who is unhappy with the idea that the patient might need neurosurgery and wants her transferred immediately to get away from that suggestion. I attempted to reach neurosurgery on-call at [facility], and after 30 minutes I called back and was notified by the sandblast operator that [facility] is on divert for all acute care and that they could not accept my patient. I am now in the process of attempting to have the patient transferred to [facility]. This unfortunate 54-year-old woman has a history of alcohol use. She has been through withdrawal multiple times. A year ago she was in our emergency department having been found unresponsive by her boyfriend, Duarte. She had a prolonged hospitalization at [facility] in August 2018 with swelling of the cerebellum and hemisphere according to Duarte (records not available). She was last known well at 9 PM on the when they went to bed together. They slept in the same bed. The night was uneventful and he got out of bed at 8 in the morning and she seemed to be sleeping normally with normal color, not having soares ffered incontinence or tongue biting. He left the house to give his son arrived to pay rent and return to the bedroom at 9 AM. when he could not wake her up he called for help. She was seen in the emergency department where her PO2 was 50%. She was intubated and placed in ICU. She seemed to be recovering, was extubated yesterday but looked worse this morning with left hemiparesis that was new. CT scan of the head shows bilateral cerebellar edema, much worse than it was 2 days ago which may be primary or may be hypoxic. Similar changes were seen on her scan in August of last year, consistent with her having experienced post hypoxic cerebellar swelling a year ago. Her images from today show brainstem compression and impending herniation as well as ventricular enlargement consistent with hydrocephalus. She has a history of seizures. She had a generalized seizure in the process of withdrawing from Xanax and alcohol in August 2017. She was found unresponsive and brought in with altered mental status in October 2017 and again in August 2018. At that time she had bitten her tongue and had severe tongue lacerations consistent with having had multiple seizures. She was a heavy consumer of alcohol and had experienced delirium tremens with seizures in July 2014. She went through alcohol rehab after a prolonged admission in March 2018. She has been compliant with follow-up visits at behavioral health care and is seen frequently by the psychiatrist as well as her therapists. Her last alcohol consumption was in August of this year. Review of Systems General: Reports: ROS unobtainable due to medical condition (She has had fever) Meds/Allergies Home Medications and Allergies Home Medications Medication Instructions Recorded Confirmed Last Taken Type atorvastatin 40 mg tablet 40 mg PO DAILY tab 05/13/19 11/16/19 Unknown History lisinopril 5 mg tablet 5 mg PO DAILY tab 05/13/19 11/16/19 Unknown History alprazolam 0.25 mg tablet 0.25 mg PO BID PRN 05/19/19 11/16/19 Unknown History memantine 10 mg tablet 10 mg PO BID #60 tab 05/19/19 11/16/19 Unknown Rx multivitamin 1 tab PO DAILY tab 05/19/19 11/16/19 Unknown History risperidone 1 mg tablet 1 mg PO BEDTIME tab 09/21/19 11/16/19 Unknown History escitalopram oxalate 20 mg tablet 30 mg PO DAILY #45 tab 10/27/19 11/16/19 Unknown Rx amitriptyline 50 mg PO BEDTIME 11/16/19 11/16/19 Unknown History bupropion HCl 150 mg PO DAILY 11/16/19 11/16/19 Unknown History trazodone 200 mg PO BEDTIME PRN 11/16/19 11/16/19 Unknown History Allergies Allergy/AdvReac Type Severity Reaction Status Date / Time No Known Allergies Allergy Verified 10/19/19 09:00 Current Medications Current Medications Generic Name Dose Route Start Last Admin Trade Name Freq PRN Reason Stop Dose Admin Albuterol/Ipratropium 3 ml 11/16/19 16:00 11/18/19 09:12 Duoneb INHALATION 3 ml Q4H.RESPIRATORY MARVEL Administration Propofol 1,000 mg in 100 mls @ 0 mls/hr 11/16/19 11:45 11/17/19 13:54 Diprivan IV 0 mcg/kg/min .Q0M MARVEL 0 mls/hr Titration Protocol Per Protocol Piperacillin Sod/Tazobactam 50 mls @ 12.5 mls/hr 11/16/19 15:30 11/18/19 08:17 Sod 3.375 gm/ Sodium Chloride IV 12.5 mls/hr Q8H MARVEL Administration Protocol As Directed Sodium Chloride 1,000 mls @ 125 mls/hr 11/16/19 22:15 11/18/19 05:32 Sodium Chloride 0.9% IV 125 mls/hr .Q8H MARVEL Administration Labetalol HCl 10 mg 11/17/19 22:41 11/18/19 08:17 Trandate IVP 10 mg Q4H PRN Administration SYSTOLIC BLOOD PRESSURE > 160 Lisinopril 10 mg 11/17/19 15:00 11/18/19 09:24 Prinivil PO Not Given DAILY MARVEL Lorazepam 1 mg 11/17/19 16:39 11/17/19 16:43 Ativan IVP 1 mg Q4H PRN Administration ANXIETY Metoprolol Tartrate 25 mg 11/17/19 20:00 11/18/19 09:24 Lopressor PO Not Given BID MARVEL PFSH Acute PFSH: Medical History (Updated 11/18/19 @ 11:30 by Lyly Penaloza MD) Anxiety disorder, unspecified See details below. 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 Major depressive disorder, recurrent, moderate See details below. Post-traumatic stress disorder, chronic Severe alcohol use disorder, in sustained remission She reports her last alcoholic drink was in August 2018. Vitals/I&O/Wt Last Vital Signs Temp 98.6 F 11/18/19 05:00 Pulse 62 11/18/19 09:17 Resp 22 H 11/18/19 09:17 BP 154/92 11/18/19 09:00 Pulse Ox 98 11/18/19 09:17 11/17/19 11/18/19 11/18/19 22:59 06:59 14:59 Intake Total 1047.917 / 2235.115 935.417 / 3170.532 Output Total 750 / 750 475 / 1225 Balance 297.917 / 1485.115 460.417 / 1945.532 Weight last 48 hrs Weight 160 lb Physical Exam Narrative: EXAM NARRATIVE: Neurologic exam: She opens her eyes briefly to the examiner. She does not follow commands. She was able to say her name. Cranial nerves: Visual lee full to threat. Eye movements full. No gaze preference. Facial movements symmetric with brow l pressure. She is managing her secretions. Motor: She has decreased strength in both upper extremities with decreased tone. She spontaneously moves the right arm but not the left. She withdraws both legs briskly from pain. Both toes are upgoing. HEENT: No signs of lacerations of the tongue. Normocephalic. Chest: Clear to auscultation. Cardiovascular: S1 and S2 normal without murmur or gallop. Abdomen soft and nontender. Extremities: No rash. No lesions. Urinary Catheter Management^: Roland: Cath Placed During This Visit: no Data Other Data: Attestation for Other Data: I personally reviewed and interpreted the following: (CT scan of the head from this morning shows bilateral cerebellar edema with impending herniation. There is secondary hydrocephalus which is new compared with her scan of 2 days ago. She has subcortical ischemia in both hemispheres, while the majority of her changes were in the right hemisphere a year ago.) A&P Assessment and plan (1) Arterial ischemic stroke, vertebrobasilar, cerebellar, acute: Presumably she has anoxic encephalopathy but primarily she has cerebellar edema and her sulci appear unremarkable except for compression from hydrocephalus. I cannot be sure this is not primary bilateral cerebellar ischemia on the basis of stroke. This patient has had multiple ischemic events and at least some of them have been clearly post anoxic, as last year when she had multiple seizures prior to cerebellar edema. Her boyfriend says that he slept beside her all night and she did not have seizures and was fine when he left her to go on an errand on the morning of the . I remain in the process of having this patient transferred. I would like to avoid osmotic treatment although that may be necessary at this point. Reintubation to reduce intracranial pressure is in process. I am in contact with the neuro hotline at [facility] and they do have ICU beds and neurotrauma beds. I am in contact. Status: Acute (2) Anoxia: Status: Acute Consult Attestations Medical Necessity Statement: acute anoxic encephalopathy and respiratory failure Coding Level of Care Code Acute [employer] Support Employee for [facility] Diagnoses Arterial ischemic stroke, vertebrobasilar, cerebellar, acute I63.29 Anoxia R09.02
--- NOTE | 2019-11-18 11:29 | XR_ITS ---
WS: [id number] CHEST XRAY TECHNIQUE: Portable chest. CLINICAL INFORMATION: Post-intubation COMPARISON: None. FINDINGS: Endotracheal tube with tip above the sari measuring 2.9 CM. Enteric tube with tip below t he diaphragm. Heart: Cardiomegaly. Lungs: Chronic emphysematous changes. No acute pulmonary infiltrates. No focal pneumonia. Bones: Thoracic curve convex right. XR/XR chest 1V portable [id number] IMPRESSION: 1. Endotracheal tube with tip in good position 2.9 cm above the sari. 2. Enteric tube with tip below the diaphragm. 3. No focal pneumonia.
[2019-11-18] MEDS: succinylcholine 20 mg/mL SDV 10mL 75 MG IVP (13:28)
[2019-11-18] MEDS: propofol 1,000 MG/100 ML INJ 35 MG IV (13:29)
--- NOTE | 2019-11-18 15:17 | PC.NURSE ---
Transfer report called to Alphonso Oliva RN at the neuro trauma ICU at [facility]. Patient taken at this time via [facility].
--- NOTE | 2019-11-20 06:53 | P.DS_ITS ---
Discharge Providers Date of Admission: 11/16/19 12:49 Date of Discharge: November 18, 2019 Attending Provider at Admission: Pascual Amezcua MD Attending Provider at Discharge: Pascual Amezcua MD Primary Care Provider: Pascual Amezcua MD Diagnoses at Discharge Discharge Diagnosis (1) Arterial ischemic stroke, vertebrobasilar, cerebellar, acute: Status: Acute (2) Anoxia: Status: Acute Reason for Visit Reason for Visit: UNRESPONSIVE Hospital Course Discharge Summary: Patient is admitted to the hospital after being in found unresponsive at home. Her significant other said when she went to bed she had been fine. By 8:00 the next morning she was unresponsive. EMS was called. She was found to have a pulse ox in the 50s and was intubated at that time. Patient was mid to the ICU. CT scan of the head showed some slight increasing changes to the cerebellum that she had had on previous CT scan. [place] as though she possibly had a CVA but was not sure. She has a long history of alcohol abuse a lthough her significant other stated she has not had any since August. She had a similar CVA over a year ago. Overnight the first night patient was ruled out for a PE with CTA the following morning. Her creatinine was initially elevated but came down the following day. She had a remarkably elevated white blood cell count and CRP which suggested possible infectious etiology. CTA showed possible early developing pneumonia. She was placed on IV Zosyn for antibiotic coverage. The morning following her admission she had been improving enough that she was able to be successfully extubated that day. She was requiring only 4 L per nasal cannula. She was communicating although a bit confused. She has some permanent left-sided weakness but this seemed to be at her baseline. By that evening she started to have more intermittent increasing weakness in the left arm. Overnight she had increasing O2 requirements up to 6 L. She became more somnolent and difficult to arouse. By the next morning we proceeded with a CT scan with contrast of the brain which showed significantly increasing edema and cerebellar edema. She also had what looked like an impending cerebellar herniation with hydrocephalus. Neurology was consulted and Dr. Penaloza was kind enough to see her and expedite transfer to [facility]. Patient was transferred by ambulance. She was reintubated prior to transfer to help reduce pressure brain. Physical Exam Urinary Catheter Management^: Roland: Cath Placed During This Visit: no Discharge Data Data Completed and Pending: Completed Studies During Hospitalization Category Date Time Status CT angio chest PE protcl 86530 Stat Cat Scan 11/17/19 06:[address] head wo con* 7 0450 Urgent Cat Scan 11/16/19 10:[address] head wo/w con [id number] Routine Cat Scan 11/18/19 06:25 Completed XR chest 1V rachel ble [id number] Routine Exams 11/18/19 06:27 Completed XR chest 1V rachel ble [id number] Stat Exams 11/18/19 11:29 Completed XR chest 1V rachel ble [id number] Urgent Exams 11/16/19 10:17 Completed CV echo complete* [id number] Routine Ultrasound 11/17/19 05:00 Completed Vitals: Last Vital Signs Temp 98.6 F 11/18/19 05:00 Pulse 72 11/18/19 13:00 Resp 12 11/18/19 15:18 BP 166/99 11/18/19 13:00 Pulse Ox 100 11/18/19 13:00 Discharge Plan Discharge Patient Disposition: Home, Self-Care Prescriptions: No Action lisinopril 5 mg tablet 5 mg PO DAILY RF: 0 atorvastatin 40 mg tablet 40 mg PO DAILY RF: 0 multivitamin Tablet 1 tab PO DAILY RF: 0 alprazolam 0.25 mg tablet 0.25 mg PO BID PRN (Reason: Anxiety) RF: 0 memantine [Namenda] 10 mg tablet 10 mg PO BID Qty: 60 RF: 1 escitalopram oxalate 20 mg tablet 30 mg PO DAILY Qty: 45 RF: 1 risperidone 1 mg tablet 1 mg PO BEDTIME RF: 0 bupropion HCl 150 mg tablet extended release 24 hr 150 mg PO DAILY RF: 0 amitriptyline 50 mg tablet 50 mg PO BEDTIME RF: 0 trazodone 100 mg tablet 200 mg PO BEDTIME PRN (Reason: insomnia) RF: 0 Discharge Date/Time: 11/18/19 15:15 Discharge Attestations Time Spent in Discharge Care*: critical care time Critical Care Time (min): 90 Quality Metrics Clinical Quality Measures During this hospital stay, did patient experience: Stroke Contraindication to Antithrombotic: Antithrombotic prescribed Contraindication to Anticoagulation: Patient transfer Contraindication to Statin: Patient transfer Coding Level of Care Code 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
== END 2019-11-18 15:15 | disposition home or self-care (01) | DRG 208 ==
LOC: ER 10:48 → ICU 13:01
PROVIDERS: Admitting Provider Family Medicine; Emergency Provider Emergency Medicine; PCP Family Medicine; Visit Provider Family Medicine
DX: J96.00 Acute respiratory failure, unspecified whether with hypoxia or hypercapnia (principal); J18.9 Pneumonia, unspecified organism; G93.40 Encephalopathy, unspecified; G91.9 Hydrocephalus, unspecified; G81.90 Hemiplegia, unspecified affecting unspecified side; I69.993 Ataxia following unspecified cerebrovascular disease; G93.9 Disorder of brain, unspecified; F41.8 Other specified anxiety disorders; E78.5 Hyperlipidemia, unspecified; I10 Essential (primary) hypertension; F43.12 Post-traumatic stress disorder, chronic
CPT/HCPCS: 12345; 31500; 36415; 36600; 51702; 70450; 70470; 71045; 71275; 80053; 80306; 80307; 82140; 82803; 83605; 83735; 83880; 84484; 85025; 85378; 85610; 86140; 86705; 86706; 86709; 86803; 87340; 93005; 93306; 94002; 94003; 94640; 94664; 94799; 96372; 96375; 99283; A4570; J0330; J1650; J2060; J2543; J2704; J3480; J3490; J7030; Q9967

== ENCOUNTER 2019-11-16 10:15 | Emergency (ER) | payer MEDICAID, SELFPAY | END 2019-11-16 13:56 | disposition admitted as inpatient to this hospital (09) | LOC: ER 16:50 | PROVIDERS: Emergency Provider Emergency Medicine; PCP Family Medicine | DX: R41.82 Altered mental status, unspecified (principal) | CPT/HCPCS: 12345; 36600; 51702; 70450; 71045; 80053; 80307; 82803; 83605; 83735; 83880; 85025; 85610; 93005; 94002; 94799; 96365; 96366; 96367; 99283; 99291 ==

== ENCOUNTER → 2019-12-22 07:56 | Outpatient (BNVA) | payer MEDICAID, SELFPAY | PROVIDERS: PCP Family Medicine; Visit Provider Nurse Practitioner Psychiatric/Mental Health | DX: F43.12 Post-traumatic stress disorder, chronic (principal); F10.21 Alcohol dependence, in remission; F41.9 Anxiety disorder, unspecified | CPT/HCPCS: 99212 ==

== ENCOUNTER → 2020-02-16 07:44 | Outpatient (BNVA) | payer MEDICAID, SELFPAY | PROVIDERS: PCP Family Medicine; Visit Provider Nurse Practitioner Psychiatric/Mental Health | DX: F43.12 Post-traumatic stress disorder, chronic (principal); F10.21 Alcohol dependence, in remission; F41.9 Anxiety disorder, unspecified; F33.1 Major depressive disorder, recurrent, moderate | CPT/HCPCS: 99212 ==

== ENCOUNTER → 2020-02-29 08:57 | Outpatient (BNVA) | payer MEDICAID, SELFPAY | PROVIDERS: PCP Family Medicine; Visit Provider Counselor Professional | DX: F43.12 Post-traumatic stress disorder, chronic (principal) | CPT/HCPCS: 90834 ==

== ENCOUNTER → 2020-03-15 09:17 | Outpatient (BNVA) | payer MEDICAID, SELFPAY | PROVIDERS: PCP Family Medicine; Visit Provider Nurse Practitioner Psychiatric/Mental Health | DX: F43.12 Post-traumatic stress disorder, chronic (principal); F10.21 Alcohol dependence, in remission; F41.9 Anxiety disorder, unspecified; F33.1 Major depressive disorder, recurrent, moderate | CPT/HCPCS: G0463 ==

== ENCOUNTER → 2020-03-16 11:43 | Outpatient (BNVA) | payer MEDICAID, SELFPAY | PROVIDERS: PCP Family Medicine; Visit Provider Specialist | DX: R41.9 Unspecified symptoms and signs involving cognitive functions and awareness (principal); G93.1 Anoxic brain damage, not elsewhere classified; F33.1 Major depressive disorder, recurrent, moderate; R79.89 Other specified abnormal findings of blood chemistry; F17.210 Nicotine dependence, cigarettes, uncomplicated | CPT/HCPCS: 96116; 99215 ==

== ENCOUNTER 2020-04-28 19:26 | Emergency (ER) | payer MEDICAID, SELFPAY ==
[2020-04-28 19:34] VITALS: BP 100/69; PULSE 74; RESP 16; TEMP 36.7; O2SAT 95; BMI 20.3
--- NOTE | 2020-04-28 19:57 | CTR_ITS ---
PROCEDURE INFORMATION: Exam: CT Head Without Contrast Exam date and time: 04/28/2020 7:58 PM Age: 54 years old Clinical indication: Injury or trauma; Laceration; Without loss of consciousness; Without residual foreign body; Head, generalized; Patient HX: Backwards fall from standing lac to back of head -loc TECHNIQUE: Imaging protocol: Computed tomography of the head without contrast. Radiation optimization: All CT scans at this facility use at least one of these dose optimization techniques: automated exposure control; mA and/or kV adjustment per patient size (includes targeted exams where dose is matched to clinical indication); or iterative reconstruction. COMPARISON: CT head wo/w con [id number] 11/18/2019 7:22 AM RADIATION DOSE METRICS: Total DLP (mGy-cm): 763.22 FINDINGS: Brain: Small chronic infarctions are present in bilateral frontal and parietal lobe white matter, the right basal ganglia and bilateral cerebellar hemispheres. Mild atrophy and mild white matter chronic microvascular changes are noted. No hemorrhage or CT evidence of acute infarction is seen. Cerebral ventricles: No ventriculomegaly. Bones/joints: Unremarkable. No acute fracture. Paranasal sinuses: Visualized sinuses are unremarkable. No fluid levels. Mastoid air cells: Visualized mastoid air cells are well aerated. Soft tissues: Mild soft tissue swelling and a tiny laceration are observed in the right occipital scalp CT/CT head wo con* [id number] IMPRESSION: No acute intracranial abnormality Radiation Dose CTDIVOL = (mGy): DLP = 763.22 (mGy-cm)
--- NOTE | 2020-04-28 20:59 | ED_ITS ---
HPI - Head Injury General: Chief complaint: Head Injury Stated complaint: fall, head lac Time Seen by Provider: 04/28/20 20:59 History of Present Illness: HPI Narrative: Patient is a 54-year-old female comes to the ED with laceration on scalp after a fall. Patient has a past medical history of stroke with residual right-sided weakness, balance and memory issues. Patient says today she was walking with her cane and lost her balance and fell backwards. She hit back of head on floor in house. Denies any loss of consciousness, vision changes or any other neurological symptoms. Patient says she had a laceration on the back of her head after fall. Patient is up-to-date on her tetanus. Associated symptoms: Deny nausea, neck pain or vomiting Review of Systems Const: Denies: fever(s), chills or fatigue Eyes: Denies: change in vision or eye discomfort ENMT: Denies: throat pain, odynophagia, nasal discharge or nasal congestion Card: Denies: chest pain, palpitations, edema, swelling of feet/ankles, dyspnea on exertion or orthopnea Resp: Denies: dyspnea, productive cough or non-productive cough GI: Denies: abdominal pain, nausea, vomiting, diarrhea, constipation or hematochezia : Denies: flank pain, dysuria or hematuria Musc: Denies: neck pain, back pain or extremity swelling Skin/Breast: Reports: new lesions (Superficial linear laceration to occipital area of scalp.); Denies: rash Neuro: Denies: headache(s), numbness in extremities or weakness in extremities [facility] ED PFSH: Medical History Anxiety disorder, unspecified CVA, old, 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 Major depressive disorder, recurrent, moderate See details below. Post-traumatic stress disorder, chronic Respiratory failure requiring intubation Severe alcohol use disorder, in sustained remission Social History Smoking and tobacco status: current every day smoker cigarettes Packs smoked per day: 0.5 Years cigarettes smoked: 48 Quit status (tobacco): not considering quitting Physical Exam Const: COMMON NORMALS: patient oriented x3, healthy appearing and alert GENERAL APPEARANCE: cooperative, comfortable and other (Patient ambulates with a cane) HENMT: COMMON NORMALS: normocephalic HEAD & SCALP: normocephalic and laceration left occipital Details of head laceration: linear and superficial; not actively bleeding, not pulsatile bleeding and not contaminated Head laceration size: 3.5 cm; no Holt's sign and no raccoon eyes MOUTH: Normal oral and palatal mucosa present THROAT: posterior oropharynx normal and uvula midline Eye: COMMON NORMALS: Equal, round and reactive pupils present, EOMs intact bilaterally and normal visual lee by confrontation PUPIL: Yes Equal, round and reactive pupils present Neck/C-Spine: COMMON NORMALS: supple GENERAL: Yes normal visual inspection Resp: COMMON NORMALS: normal respiratory effort, No retractions, No use of accessory muscles and clear to auscultation bilaterally AUSCULTATION: clear to auscultation bilaterally Cardio: COMMON NORMALS: regular rate, regular rhythm, S1 normal heart sound present, S2 normal heart sound present, No gallops present (Cardio), No clicks present (Cardio), No murmurs present (Cardio) and Peripheral pulses 2+ throughout RATE: regular rate RHYTHM: regular rhythm HEART SOUNDS: S1 normal heart sound present and S2 normal heart sound present PERIPHERAL PULSES: Peripheral pulses 2+ throughout GI: COMMON NORMALS: Normal to inspection, nondistended, normoactive bowel sounds present, Soft to palpation, non-tender and no masses PALPATION: Yes Soft to palpation : COMMON NORMALS: Yes no CVA tenderness BLADDER/KIDNEY EXAM: Yes no CVA tenderness Back/Pelvis: COMMON NORMALS: no CVA tenderness Extremity: COMMON NORMALS: normal to inspection Neuro: COMMON NORMALS: patient oriented x3, CN's II-XII intact bilaterally, moves all extremities, no focal motor deficits and no sensory deficits noted SENSORIUM/ORIENTATION: Yes alert GAIT: Yes Assistive device used cane (Patient says ever since past stroke she uses cane to ambulate) SENSORY EXAM: Yes extremities (intact) MOTOR EXAM: 5/5 motor strength present throughout Skin: NARRATIVE SKIN EXAM: Scalp laceration noted on [facility] section of exam. GENERAL SKIN EXAM: dry skin Procedures Laceration Laceration 1: Site: scalp Size (cm): 3.5 Description: linear and clean Depth: simple, single layer Local Anesthetic: lidocaine 2% Amount of anesthesia used (mL): 10 Pre-repair: irrigated extensively (With normal saline.) Skin layer closed with: other (blanca) Number of sutures: 5 (blanca) Technique: other (blanca) Course Vital Signs: Vital signs: Vital Signs Temperature 98.1 F 04/28/20 19:34 Pulse Rate 68 04/28/20 22:36 Respiratory Rate 14 04/28/20 22:36 Blood Pressure 104/71 04/28/20 22:36 Pulse Oximetry 94 04/28/20 22:36 MDM - Head Injury MDM Narrative: Medical decision making narrative: Patient is a 54-year-old female comes to the ED with a superficial laceration on occipital region of scalp. Patient had a fall and denies any loss of consciousness or any other neurological symptoms. Patient has a history of stroke with some residual balance issues and she walks with a cane. Neuro exam unremarkable. CT of head showed no acute findings. Scalp laceration was irrigated extensively with normal saline and then lidocaine 2% was injected as local. 5 blanca placed to close laceration of the scalp. Patient was discharged and told to follow-up with PCP, ED or urgent care to get blanca removed in 7 to 10 days. Patient was given instructions on how to care for laceration. Return to ED precautions given. Patient understood agree with plan. Imaging Data^: CT Head: Attestation: I personally reviewed and interpreted this imaging study as follows: Radiologist's impression: [address] [address] [address] Scan Report Signed Patient: Katerina Singer Unit #: [id number] : 1965 Age/Sex: 54 / F ADM Date: 04/28/20 Loc: ER Room/Bed: Attending Dr: Ordering Provider/Ordering MD: Corby Lau MD Date of Service: 04/28/20 Procedure(s): CT head wo con* [id number] Accession Number(s): [id number] Report Number: [id number] PROCEDURE INFORMATION: Exam: CT Head Without Contrast Exam date and time: 04/28/2020 7:58 PM Age: 54 years old Clinical indication: Injury or trauma; Laceration; Without loss of consciousness; Without residual foreign body; Head, generalized; Patient HX: Backwards fall from standing lac to back of head -loc TECHNIQUE: Imaging protocol: Computed tomography of the head without contrast. Radiation optimization: All CT scans at this facility use at least one of these dose optimization techniques: automated exposure control; mA and/or kV adjustment per patient size (includes targeted exams where dose is matched to clinical indication); or iterative reconstruction. COMPARISON: CT head wo/w con [id number] 11/18/2019 7:22 AM RADIATION DOSE METRICS: Total DLP (mGy-cm): 763.22 FINDINGS: Brain: Small chronic infarctions are present in bilateral frontal and parietal lobe white matter, the right basal ganglia and bilateral cerebellar hemispheres. Mild atrophy and mild white matter chronic microvascular changes are noted. No hemorrhage or CT evidence of acute infarction is seen. Cerebral ventricles: No ventriculomegaly. Bones/joints: Unremarkable. No acute fracture. Paranasal sinuses: Visualized sinuses are unremarkable. No fluid levels. Mastoid air cells: Visualized mastoid air cells are well aerated. Soft tissues: Mild soft tissue swelling and a tiny laceration are observed in the right occipital scalp CT/CT head wo con* [id number] IMPRESSION: No acute intracranial abnormality Radiation Dose CTDIVOL = (mGy): DLP = 763.22 (mGy-cm) Dictated By: Elio Peterson MD Signed By: Elio Peterson MD Signed Date/Time: 04/28/202043 DD/ 43 Discharge Plan Discharge Patient Disposition: Home Clinical Impression: Laceration of scalp Qualifiers: Encounter type: initial encounter Qualified Code(s): S01.01XA - Laceration without foreign body of scalp, initial encounter Condition: Stable Prescriptions: No Action lisinopril 5 mg tablet 5 mg PO DAILY RF: 0 atorvastatin 40 mg tablet 40 mg PO DAILY RF: 0 multivitamin Tablet 1 tab PO DAILY RF: 0 amitriptyline 50 mg tablet 50 mg PO BEDTIME Qty: 30 RF: 1 trazodone 100 mg tablet 200 mg PO BEDTIME PRN (Reason: insomnia) Qty: 60 RF: 1 memantine [Namenda] 10 mg tablet 10 mg PO BID Qty: 60 RF: 1 escitalopram oxalate 20 mg tablet 20 mg PO DAILY Qty: 30 RF: 1 bupropion HCl 150 mg tablet extended release 24 hr 150 mg PO DAILY RF: 0 Discharge Orders: Discharge ED (Routine); Ordered 04/28/20 Ordered By: Drew Lennon Referrals: Pascual Amezcua MD [Primary Care Provider] - Discharge Diet: Regular Discharge Activity: Resume usual activity Patient Instructions: Scalp Laceration, Staple Care (ED) Activity Restrictions/Additional Instructions: Follow-up with medical provider as directed in 7 to 10 days to get blanca removed. Take [id number] Tylenol or ibuprofen for pain. Keep scalp dry for the next 24 hours then you can rinse but do not scrub scalp. Return if you are concerned of any signs of infection such as warmth or puslike drainage around the laceration site. Return to the ER or your medical provider if condition worsens. Please read and understand discharge instructions. If any questions, please ask. Coding Level of Care Code ED Director Talent Acquisition for [employer]ena Fwd Exam Comprehensive
[2020-04-28 22:36] VITALS: BP 104/71; PULSE 68; RESP 14; O2SAT 94
--- NOTE | 2020-05-09 12:09 | PC.NURSE ---
removed 5 blanca from pt head. area is well approximated, pwd. pt reports no new sx.
== END 2020-04-28 22:39 | disposition home or self-care (01) ==
PROVIDERS: Emergency Provider Physician Assistant; PCP Family Medicine
DX: S01.01XA Laceration without foreign body of scalp, initial encounter (principal); Z86.73 Personal history of transient ischemic attack (TIA), and cerebral infarction without residual deficits; F17.210 Nicotine dependence, cigarettes, uncomplicated; W19.XXXA Unspecified fall, initial encounter
CPT/HCPCS: 12002; 12345; 70450; 99281; 99282

== ENCOUNTER → 2020-09-14 11:45 | Outpatient (BNVA) | payer MEDICAID, SELFPAY | PROVIDERS: PCP Family Medicine; Visit Provider Specialist | DX: G93.1 Anoxic brain damage, not elsewhere classified (principal); F33.1 Major depressive disorder, recurrent, moderate; R79.89 Other specified abnormal findings of blood chemistry | CPT/HCPCS: 96116; 99214 ==

== ENCOUNTER 2021-07-28 13:44 | Outpatient (CLI) | payer MEDICAID, SELFPAY ==
--- NOTE | 2021-07-28 14:02 | MR_ITS ---
WS: [id number] MRI BRAIN WITHOUT CONTRAST HISTORY: HEADACHE/ CVA COMPARISON: CT head 04/28/2020 TECHNIQUE: Diffusion imaging, multiplanar T1, T2 and FLAIR imaging obtained. No evidence for acute infarct or hemorrhage. Chery-white matter differentiation is normal. Prior lacunar infarcts in the RIGHT basal ganglia and bilaterally within the cerebellum. Additional i ncreased T2 and FLAIR signal surrounding the ventricles from chronic microvascular ischemic disease. There are probably additional small lacunar infarcts adjacent to the occipital and frontal horns. Ventricles and extra-axial spaces are normal. No inferior displacement of cerebellar tonsils. The sella turcica and pituitary gland are unremarkabl e. Dural venous sinuses and pilot station of Bone demonstrate no abnormality on this unenhanced studies. Paranasal sinuses: Clear. Mastoid air cells: Normal. Calvarium and scalp: Intact. MR/MR head wo con* [id number] IMPRESSION: 1. No acute infarct or hemorrhage. 2. Moderate chronic microvascular ischemic disease with multiple small lacunar infarcts. Most significant in the RIGHT basal ganglia and adjacent to the fron krissy and occipital horns of lateral ventricles. Additional bilateral ischemic in farcts in the cerebellum. The extent of microvascular disease and infarcts more than expected for patient of this age. None of these infarcts appear acute.
--- NOTE | 2021-07-28 14:25 | XR_ITS ---
WS: [id number] AP and lateral skull series, 07/28/2021 Clinical Data: PRE MRI/CHECK FOR FOREIGN BODY Comparison: None. Findings: No radiopaque foreign bodies are seen in the orbits or the skull. The sella turcica is normal. There are no abnormal calcifications overlying the skull. XR/XR skull <4V [id number] Impression: Negative for radiopaque foreign bodies.
== END 2021-07-28 13:45 | disposition home or self-care (01) ==
PROVIDERS: PCP Family Medicine; Visit Provider Family Medicine
DX: R51.9 Headache, unspecified (principal); I63.9 Cerebral infarction, unspecified
CPT/HCPCS: 70250; 70551

== ENCOUNTER → 2022-03-21 14:37 | Outpatient (BNVA) | payer MEDICARE, MEDICAID, SELFPAY | PROVIDERS: PCP Family Medicine; Visit Provider Specialist | DX: G43.711 Chronic migraine without aura, intractable, with status migrainosus (principal); G93.1 Anoxic brain damage, not elsewhere classified; R26.89 Other abnormalities of gait and mobility; R41.1 Anterograde amnesia | CPT/HCPCS: 96116; 99215 ==

== ENCOUNTER → 2022-10-19 09:29 | Outpatient (BNVA) | payer MEDICARE, MEDICAID, SELFPAY | PROVIDERS: PCP Family Medicine; Visit Provider Specialist | DX: G43.711 Chronic migraine without aura, intractable, with status migrainosus (principal); F33.1 Major depressive disorder, recurrent, moderate; I69.354 Hemiplegia and hemiparesis following cerebral infarction affecting left non-dominant side; F17.210 Nicotine dependence, cigarettes, uncomplicated | CPT/HCPCS: 99214 ==

== ENCOUNTER → 2022-11-15 13:26 | Outpatient (BNVA) | payer MEDICARE, MEDICAID, SELFPAY | PROVIDERS: PCP Family Medicine; Visit Provider Specialist | DX: I69.354 Hemiplegia and hemiparesis following cerebral infarction affecting left non-dominant side (principal); G43.711 Chronic migraine without aura, intractable, with status migrainosus; G93.1 Anoxic brain damage, not elsewhere classified; F33.1 Major depressive disorder, recurrent, moderate; F17.210 Nicotine dependence, cigarettes, uncomplicated | CPT/HCPCS: 64615; 64642; 99213; J0585 ==

== ENCOUNTER → 2022-11-20 13:47 | Outpatient (BNVA) | payer MEDICARE, MEDICAID, SELFPAY | PROVIDERS: PCP Family Medicine; Visit Provider Family Medicine | DX: R79.89 Other specified abnormal findings of blood chemistry (principal); G93.1 Anoxic brain damage, not elsewhere classified; I69.398 Other sequelae of cerebral infarction; R25.2 Cramp and spasm; F41.9 Anxiety disorder, unspecified | CPT/HCPCS: 80053; 80061; 85025 ==

== ENCOUNTER → 2023-02-14 12:44 | Outpatient (BNVA) | payer MEDICARE, MEDICAID, SELFPAY | PROVIDERS: PCP Family Medicine; Visit Provider Specialist | DX: G81.14 Spastic hemiplegia affecting left nondominant side (principal); I69.398 Other sequelae of cerebral infarction; R25.2 Cramp and spasm; R29.2 Abnormal reflex; G43.711 Chronic migraine without aura, intractable, with status migrainosus | CPT/HCPCS: 64642; 99213; J0585 ==